=== PATIENT | male | born 1970 | race Two or more races ===

== ENCOUNTER 2017-11-15 16:09 | Emergency (ER) | payer SELFPAY ==
[~2017-11-15] VITALS: Ht 182.9 cm; Wt 88.5 kg
[2017-11-15 16:30] VITALS: BP 128/78
[2017-11-15] MEDS ORDERED: KETOROLAC TROMETHAMINE INJ 30 MG/ML VIAL ONE (18:18)
[2017-11-15] MEDS ORDERED: KETOROLAC TROMETHAMINE INJ 60 MG/2 ML VIAL IM ONE (18:30)
== END 2017-11-15 18:27 | disposition home or self-care (01) ==
LOC: ER 16:11
DX: S16.1XXA Strain of muscle, fascia and tendon at neck level, initial encounter (principal); M25.522 Pain in left elbow; F17.200 Nicotine dependence, unspecified, uncomplicated; V49.49XA Driver injured in collision with other motor vehicles in traffic accident, initial encounter; Y93.89 Activity, other specified; Y92.413 State road as the place of occurrence of the external cause; Y99.8 Other external cause status
CPT/HCPCS: A4606; J1885; Z7610